=== PATIENT | female | born 1990 | race Caucasian/White ===

== ENCOUNTER 2019-12-17 09:17 | Emergency (ER) | payer OTHER, BC ==
[~2019-12-17] VITALS: Ht 165.1 cm; Wt 97.5 kg
[2019-12-17 09:32] VITALS: BP_SYST 154
--- NOTE | 2019-12-17 09:36 | NUR ---
Patient to ER bed 04 to gown for evaluation. Side rails up.
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
--- NOTE | 2019-12-17 10:11 | NUR ---
Dr Ram evaluating patient at bedside.
[2019-12-17] MEDS ORDERED: MORPHINE 4 MG/ML INJ. SYRINGE IM ONE (10:15)
[2019-12-17 10:52] VITALS: BP_SYST 152
--- NOTE | 2019-12-17 10:53 | NUR ---
Patient given written and verbal discharge instructions and verbalizes understanding. ER MD discussed with patient the results and treatment provided. Patient in stable condition. ID arm band removed. Rx of Riley 5-325mg given. Patient educated on pain management and to follow up with PMD. Pain Scale 3/10 tolerable for patient . Opportunity for questions provided and answered. Medication side effect fact sheet provided.
== END 2019-12-17 10:53 | disposition home or self-care (01) ==
LOC: SED 09:17
DX: M54.2 Cervicalgia (principal); M54.5 Low back pain; F12.90 Cannabis use, unspecified, uncomplicated; Z90.49 Acquired absence of other specified parts of digestive tract; V43.52XA Car driver injured in collision with other type car in traffic accident, initial encounter; Y93.89 Activity, other specified; Y92.413 State road as the place of occurrence of the external cause; Y99.8 Other external cause status
CPT/HCPCS: 81002; 81025; 96372; 99283; J2270